=== PATIENT | male | born 1970 | race Hispanic/Latino ===

== ENCOUNTER 2021-05-05 12:24 | Emergency (ER) | payer OTHER ==
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
--- NOTE | 2021-05-05 14:11 | RAD REPORT ---
EXAM DESCRIPTION: RAD - Humerus Right - 05/05/2021 1:57 pm CLINICAL HISTORY: PAIN Trauma, pain COMPARISON: <Comparisons> FINDINGS: Right humerus, elbow and forearm- multiple projections are submitted No acute fracture or dislocation seen. Small olecranon spur.
[2021-05-05] MEDS ORDERED: cloNIDine HCL 0.1 MG TAB ONE (15:04)
--- NOTE | 2021-05-05 15:08 | RAD REPORT ---
EXAM DESCRIPTION: RAD - Chest Pa And Lat (2 Views) - 05/05/2021 2:59 pm CLINICAL HISTORY: CHEST PAIN Chest pain. COMPARISON: CHEST SINGLE VIEW dated 06/30/2015 FINDINGS: The lungs are clear. The heart is normal in size. Tortuous thoracic aorta. No displaced fr actures.
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
[2021-05-05 15:53] VITALS: TEMP 98.1
[2021-05-05 15:56] VITALS: BP 188/139; O2SAT 96
[2021-05-05] MEDS ORDERED: KETOROLAC 30 MG/ML INJ ONE (15:56)
[2021-05-05] MEDS ORDERED: HYDROCODONE/APAP 10/325 TAB ONE (15:56)
--- NOTE | 2021-05-06 14:11 | RAD REPORT ---
EXAM DESCRIPTION: RAD - Elbow Right 3 View - 05/05/2021 1:57 pm CLINICAL HISTORY: PAIN Trauma, pain COMPARISON: <COMPARISONS> FINDINGS: Right humerus, elbow and forearm- multiple projections are submitted No acute fracture or dislocation seen. Small olecranon spur.
--- NOTE | 2021-05-06 14:12 | RAD REPORT ---
EXAM DESCRIPTION: RAD - Forearm Right - 05/05/2021 1:51 pm CLINICAL HISTORY: PAIN Trauma, pain COMPARISON: <COMPARISONS> FINDINGS: Right humerus, elbow and forearm- multiple projections are submitted No acute fracture or dislocation seen. Small olecranon spur.
--- NOTE | 2021-05-07 07:30 | EKG ---
Test Date: 2021-05-05 Test Time: 14:40:03 Video Player Mechanic: KARLI MEASUREMENT RESULTS: Intervals: Rate: 81 [place]: 142 QRSD: 82 QT: 372 QTc: 432 Circle: P: 25 [place]: 142 QRS: 16 T: 147 INTERPRETIVE STATEMENTS: Normal sinus rhythm Minimal voltage criteria for LVH, may be normal variant T wave abnormality, consider lateral ischemia Abnormal ECG Compared to ECG 07/01/2015 11:55:40 Left ventricular hypertrophy now present Possible ischemia now present T-wave abnormality still present Electronically Signed On 05-07-21 07:26:51 CDT by Nirav Smith
== END 2021-05-05 15:47 | disposition home or self-care (01) ==
LOC: ER 12:24
DX: M25.511 Pain in right shoulder (principal); M54.5 Low back pain; V28.4XXA Motorcycle driver injured in noncollision transport accident in traffic accident, initial encounter; I10 Essential (primary) hypertension; F17.210 Nicotine dependence, cigarettes, uncomplicated
CPT/HCPCS: 71046; 72100; 93005; 96372; 99283

== ENCOUNTER 2021-07-02 12:34 | Emergency (ER) | payer OTHER ==
[2021-07-02] MEDS ORDERED: NITROGLYCERIN 0.4 MG/TAB SL ONE (14:14)
[2021-07-02] MEDS ORDERED: ASPIRIN 81 MG CHEWABLE TABLET ONE (14:16)
--- NOTE | 2021-07-02 14:20 | RAD REPORT ---
EXAM DESCRIPTION: RAD - Chest Single View - 07/02/2021 1:47 pm CLINICAL HISTORY: CHEST PAIN COMPARISON: Chest Pa And Lat (2 Views) dated 05/05/2021; CHEST SINGLE VIEW dated 06/30/2015 FINDINGS: No evidence of edema or pneumonia. The heart size is within normal limits.No acute osseous abnormality. No significant pleural effusions or pneumothorax. IMPRESSION: No acute cardiopulmonary disease.
[2021-07-02 14:26] LABS: Basophils % 0.9 % (0-1.3); Lymphocytes % 19.9 % (15.3-44.8); MPV 6.8 fL (7.6-11.3); RBC Red Blood Cell Count 4.73 M/uL (4.33-5.43)
[2021-07-02 14:27] LABS: Protime INR 0.96
[2021-07-02 14:43] LABS: ALT/SGPT 101 U/L (12-78); AST/SGOT 56 U/L (15-37); Albumin 3.8 g/dL (3.4-5.0); Alkaline Phosphatase 81 U/L (45-117); BUN Blood Urea Nitrogen 11 mg/dL (7-18); Bicarbonate 29 mmol/L (21-32); Bilirubin Direct 0.2 mg/dL (0-0.2); Bilirubin Total 0.8 mg/dL (0.2-1.0); Glucose Level 112 mg/dL (74-106); Magnesium 2.1 mg/dL (1.8-2.4); NT PRO-BNP 133 pg/mL (<125); Protein, Total 7.1 g/dL (6.4-8.2); Sodium Level 138 mmol/L (136-145); Troponin (Emerg Dept Use Only) < 0.02 ng/mL (0.0-0.045)
[2021-07-02] MEDS ORDERED: POTASSIUM CL SA 10 MEQ TAB PO ONE (15:31)
--- NOTE | 2021-07-02 20:01 | ER ---
Nurse's Notes [facility] Name: Kirit Brownlee Age: 50 yrs Sex: Male : 1970 Arrival Date: 07/02/2021 Time: 12:35 Bed 14 [facility] MD: Diagnosis: Essential (primary) hypertension;Chest pain, unspecified Presentation: 07/02 12:40 Chief complaint: Patient states: CP for 2 days. High BP for 2 days. BP was 215/149 at ss home last night. Coronavirus screen: Client denies travel out of the [place] in the last 14 days. At this time, the client does not indicate any symptoms associated with coronavirus-19. Ebola Screen: Patient denies travel to an Ebola-affected area in the 21 days before illness onset. Initial Sepsis Screen: Does the patient meet any 2 criteria? No. Patient's initial sepsis screen is negative. Does the patient have a suspected source of infection? No. Patient's initial sepsis screen is negative. Risk Assessment: Do you want to hurt yourself or someone else? Patient reports no desire to harm self or others. Onset of symptoms was July 01, 2021. 12:40 Method Of Arrival: Ambulatory ss 12:40 Acuity: JESSICA 3 ss Historical: - Allergies: 12:42 No Known Drug Allergies; ss - PMHx: 12:42 Hypertension; GERD; high cholesterol; ss - PSHx: 12:42 None; ss - Immunization history:: Client reports receiving the 1st dose of the Covid vaccine, Flu vaccine is up to date. - Social history:: Smoking status: Patient reports the use of cigarette tobacco products, denies chronic smoking, but will smoke occasionally. Screenin:34 Abuse screen: Denies threats or abuse. Nutritional screening: No deficits noted. vg1 Tuberculosis screening: No symptoms or risk factors identified. Fall Risk No fall in past 12 months (0 pts). No secondary diagnosis (0 pts). IV access (20 points). Ambulatory Aid- None/Bed Rest/Nurse Assist (0 pts). Gait- Normal/Bed Rest/Wheelchair (0 pts) Mental Status- Oriented to own ability (0 pts). Total Lopez Fall Scale indicates No Risk (0-24 pts). Assessment: 13:00 General: Appears in no apparent distress. uncomfortable, Behavior is calm, cooperative. vg1 Pain: Complains of pain in back and chest Pain does not radiate. Pain currently is 7 out of 10 on a pain scale. Quality of pain is described as pressure, Pain began 1 day ago. Neuro: Level of Consciousness is awake, alert, obeys commands, Oriented to person, place, time, situation, Die Turner are equal bilaterally Moves all extremities. Gait is Speech is normal, Facial symmetry appears normal, Reports dizziness, since yesterday and lightheaded. Also stated that yesterday Right side of jaw was twitching. . Cardiovascular: Patient's skin is warm and dry. Rhythm is sinus rhythm. Respiratory: Airway is patent Respiratory effort is even, unlabored. GI: Patient currently denies diarrhea, nausea, vomiting. : No signs and/or symptoms were reported regarding the genitourinary system. EENT: No signs and/or symptoms were reported regarding the EENT system. Derm: Skin is intact, is healthy with good turgor. Musculoskeletal: Circulation, motion, and sensation intact. 14:09 Reassessment: about five minutes after receiving Nirto, pt became pale and nauseous. BP vg1 dropped to 99/53 HR 72. Provider notified. At 1402 BP 104/84 HR 53. At 1404 BP 121/87 HR 50. Provider at bedside. 15:14 Reassessment: Patient appears in no apparent distress at this time. Patient and/or vg1 family updated on plan of care and expected duration. Pain level reassessed. Patient is alert, oriented x 3, equal unlabored respirations, skin warm/dry/pink. Rated chest pain 2/10. Provider notified Patient states feeling better. 16:49 Reassessment: Patient appears in no apparent distress at this time. Patient and/or vg1 family updated on plan of care and expected duration. Pain level reassessed. Patient is alert, oriented x 3, equal unlabored respirations, skin warm/dry/pink. Patient denies pain at this time. 17:58 Reassessment: Patient appears in no apparent distress at this time. Patient and/or vg1 family updated on plan of care and expected duration. Pain level reassessed. Patient is alert, oriented x 3, equal unlabored respirations, skin warm/dry/pink. Patient denies pain at this time. Patient states feeling better. 19:31 Reassessment: Patient appears in no apparent distress at this time. No changes from vg1 previously documented assessment. 20:26 Reassessment: Patient appears in no apparent distress at this time. No changes from vg1 previously documented assessment. Patient denies pain at this time. Patient states feeling better. Vital Signs: 12:40 Pulse 75; Resp 18; Temp 97.6; Pulse Ox 100% ; Weight 90.72 kg; Height 5 ft. 6 in. ss (167.64 cm); Pain 7/10; 12:43 BP 192 / 126; ss 12:58 BP 174 / 121; Pulse 71; Resp 14; Pulse Ox 97% ; vg1 13:00 BP 163 / 117; Pulse 68; Resp 12; Pulse Ox 97% ; vg1 13:30 BP 185 / 121; Pulse 68; Resp 14; Pulse Ox 100% ; vg1 14:00 BP 99 / 53; Pulse 72; Resp 20; Pulse Ox 98% ; vg1 14:02 BP 104 / 84; Pulse 53; Resp 16; Pulse Ox 95% ; vg1 14:04 BP 121 / 87; Pulse 50; Resp 18; Pulse Ox 100% ; vg1 14:15 BP 120 / 93; Pulse 67; Resp 12; Pulse Ox 96% ; vg1 14:30 BP 134 / 110; Pulse 63; Resp 12; Pulse Ox 98% ; vg1 14:45 BP 141 / 104; Pulse 62; Resp 12; Pulse Ox 98% ; vg1 15:00 BP 130 / 104; Pulse 65; Resp 12; Pulse Ox 96% ; vg1 15:30 BP 153 / 113; Pulse 65; Resp 14; Pulse Ox 99% ; vg1 16:00 BP 141 / 113; Pulse 61; Resp 12; Pulse Ox 97% ; vg1 16:30 BP 146 / 112; Pulse 62; Resp 16; Pulse Ox 98% ; vg1 17:30 BP 142 / 115; Pulse 66; Resp 18; Pulse Ox 100% ; vg1 18:00 BP 161 / 113; Pulse 65; Resp 12; Pulse Ox 98% ; vg1 18:30 BP 165 / 102; Pulse 67; Resp 12; Pulse Ox 98% ; vg1 19:00 BP 158 / 107; Pulse 64; Resp 12; Pulse Ox 99% ; vg1 20:26 BP 162 / 114; Pulse 70; Resp 14; Pulse Ox 99% ; vg1 12:40 Body Mass Index 32.28 (90.72 kg, 167.64 cm) ED Course: 12:35 Patient arrived in ED. ds1 12:40 Arm band placed on. ss 12:42 Triage completed. ss 12:58 Mis Marquez RN is Primary Nurse. vg1 13:32 Remigio Bolaños PA is PHCP. jr8 13:32 Edvin Prieto MD is Attending Physician. jr8 13:34 Patient has correct armband on for positive identification. Placed in gown. Bed in low vg1 position. Call light in reach. Side rails up X2. Adult w/ patient. 13:47 XRAY Chest (1 view) In Process Unspecified. EDMS 14:03 Initial lab(s) drawn, by me, sent to lab. Inserted saline lock: 20 gauge in right vg1 antecubital area, using aseptic technique. Blood collected. 17:59 Repeat lab(s) drawn. by me, sent to lab. vg1 19:11 Primary Nurse role handed off by Mis Marquez RN 19:17 Mis Marquez RN is Primary Nurse. vg1 20:00 Nirav Smith MD is Referral Physician. jr8 20:27 No provider procedures requiring assistance completed. IV discontinued, intact, vg1 bleeding controlled, No redness/swelling at site. Pressure dressing applied. Administered Medications: 13:58 Drug: Aspirin Chewable Tablet 324 mg Route: PO; vg1 15:00 Follow up: Response: No adverse reaction vg1 13:58 Drug: Nitroglycerin 0.4 mg Route: Sublingual; vg1 15:00 Follow up: Response: Adverse reaction, Physician notified vg1 15:14 Drug: Potassium Chloride 40 mEq Route: PO; vg1 20:27 Follow up: Response: No adverse reaction vg1 Outcome: 20:01 Discharge ordered by . jr8 20:27 Discharged to home ambulatory, with family. vg1 20:27 Condition: stable 20:27 Discharge instructions given to patient, Instructed on discharge instructions, follow up and referral plans. Demonstrated understanding of instructions, follow-up care. 20:27 Patient left the ED. vg1 Signatures: Dispatcher [employer] [facility] Randi Carmichael ds1 Nataliia Padilla RN RN Remigio Bolaños PA PA jr8 Mis Marquez RN RN vg1
--- NOTE | 2021-07-02 20:01 | EDPHYS ---
Physician Documentation [facility] Name: Kirit Brownlee Age: 50 yrs Sex: Male : 1970 Arrival Date: 07/02/2021 Time: 12:35 Bed 14 Private MD: ED Physician Edvin Prieto HPI: 07/02 14:45 This 50 yrs old Male presents to ER via Ambulatory with complaints of High jr8 Blood Pressure. 14:45 Onset: The symptoms/episode began/occurred gradually, 2 day(s) ago. Associated signs jr8 and symptoms: Pertinent positives: chest pain. Severity of symptoms: At its worst the blood pressure was moderate, in the emergency department the blood pressure is unchanged. The patient has experienced a previous episode. The patient has not recently seen a physician. Patient stated that he deals with chronic hypertension. Stated for the past couple days the hypertension has been worse and now having on and off chest pain.. Historical: - Allergies: 12:42 No Known Drug Allergies; ss - PMHx: 12:42 Hypertension; GERD; high cholesterol; ss - PSHx: 12:42 None; ss - Immunization history:: Client reports receiving the 1st dose of the Covid vaccine, Flu vaccine is up to date. - Social history:: Smoking status: Patient reports the use of cigarette tobacco products, denies chronic smoking, but will smoke occasionally. ROS: 14:45 Eyes: Negative for injury, pain, redness, and discharge, ENT: Negative for injury, jr8 pain, and discharge, Neck: Negative for injury, pain, and swelling, Respiratory: Negative for shortness of breath, cough, wheezing, and pleuritic chest pain, Abdomen/GI: Negative for abdominal pain, nausea, vomiting, diarrhea, and constipation, Back: Negative for injury and pain, MS/Extremity: Negative for injury and deformity, Skin: Negative for injury, rash, and discoloration, Neuro: Negative for headache, weakness, numbness, tingling, and seizure. 14:45 Cardiovascular: Positive for chest pain, Negative for edema, orthopnea, palpitations, paroxysmal nocturnal dyspnea. Exam: 14:45 Constitutional: This is a well developed, well nourished patient who is awake, alert, jr8 and in no acute distress. Eyes: Pupils equal round and reactive to light, extra-ocular motions intact. Lids and lashes normal. Conjunctiva and sclera are non-icteric and not injected. Cornea within normal limits. Periorbital areas with no swelling, redness, or edema. ENT: Nares patent. No nasal discharge, no septal abnormalities noted. Tympanic membranes are normal and external auditory canals are clear. Oropharynx with no redness, swelling, or masses, exudates, or evidence of obstruction, uvula midline. Mucous membranes moist. Neck: Trachea midline, no thyromegaly or masses palpated, and no cervical lymphadenopathy. Supple, full range of motion without nuchal rigidity, or vertebral point tenderness. No Meningismus. Cardiovascular: Regular rate and rhythm with a normal S1 and S2. No gallops, murmurs, or rubs. Normal PMI, no JVD. No pulse deficits. Respiratory: Lungs have equal breath sounds bilaterally, clear to auscultation and percussion. No rales, rhonchi or wheezes noted. No increased work of breathing, no retractions or nasal flaring. Abdomen/GI: Soft, non-tender, with normal bowel sounds. No distension or tympany. No guarding or rebound. No evidence of tenderness throughout. Back: No spinal tenderness. No costovertebral tenderness. Full range of motion. Skin: Warm, dry with normal turgor. Normal color with no rashes, no lesions, and no evidence of cellulitis. MS/ Extremity: Pulses equal, no cyanosis. Neurovascular intact. Full, normal range of motion. Neuro: Awake and alert, GCS 15, oriented to person, place, time, and situation. Cranial nerves II-XII grossly intact. Motor strength 5/5 in all extremities. Sensory grossly intact. Vital Signs: 12:40 Pulse 75; Resp 18; Temp 97.6; Pulse Ox 100% ; Weight 90.72 kg; Height 5 ft. 6 in. ss (167.64 cm); Pain 7/10; 12:43 BP 192 / 126; ss 12:58 BP 174 / 121; Pulse 71; Resp 14; Pulse Ox 97% ; vg1 13:00 BP 163 / 117; Pulse 68; Resp 12; Pulse Ox 97% ; vg1 13:30 BP 185 / 121; Pulse 68; Resp 14; Pulse Ox 100% ; vg1 14:00 BP 99 / 53; Pulse 72; Resp 20; Pulse Ox 98% ; vg1 14:02 BP 104 / 84; Pulse 53; Resp 16; Pulse Ox 95% ; vg1 14:04 BP 121 / 87; Pulse 50; Resp 18; Pulse Ox 100% ; vg1 14:15 BP 120 / 93; Pulse 67; Resp 12; Pulse Ox 96% ; vg1 14:30 BP 134 / 110; Pulse 63; Resp 12; Pulse Ox 98% ; vg1 14:45 BP 141 / 104; Pulse 62; Resp 12; Pulse Ox 98% ; vg1 15:00 BP 130 / 104; Pulse 65; Resp 12; Pulse Ox 96% ; vg1 15:30 BP 153 / 113; Pulse 65; Resp 14; Pulse Ox 99% ; vg1 16:00 BP 141 / 113; Pulse 61; Resp 12; Pulse Ox 97% ; vg1 16:30 BP 146 / 112; Pulse 62; Resp 16; Pulse Ox 98% ; vg1 17:30 BP 142 / 115; Pulse 66; Resp 18; Pulse Ox 100% ; vg1 18:00 BP 161 / 113; Pulse 65; Resp 12; Pulse Ox 98% ; vg1 18:30 BP 165 / 102; Pulse 67; Resp 12; Pulse Ox 98% ; vg1 19:00 BP 158 / 107; Pulse 64; Resp 12; Pulse Ox 99% ; vg1 20:26 BP 162 / 114; Pulse 70; Resp 14; Pulse Ox 99% ; vg1 12:40 Body Mass Index 32.28 (90.72 kg, 167.64 cm) ss MDM: 13:32 Patient medically screened. [facility] 19:51 Data reviewed: vital signs, nurses notes, lab test result(s), EKG, radiologic studies, jr8 plain films. Data interpreted: Pulse oximetry: on room air is 99 %. Interpretation: normal. 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 Response to treatment: the patient's symptoms have markedly improved after treatment. ED course: Currently without chest pain. Both troponins were negative. Blood pressure markedly improved. Will have patient follow-up with primary care physician and cardiology. Also noted to patient that his potassium was slightly low. That this could be secondary causes of hypertension and that he needs to be worked up for primary hyperaldosteronism. Patient good with this and will follow up. Knows to come back if worse.. 07/02 13:32 Order name: Basic Metabolic Panel; Complete Time: 14:45 07/02 13:32 Order name: CBC with Diff; Complete Time: 15:15 07/02 13:32 Order name: LFT's; Complete Time: 14:45 07/02 13:32 Order name: Magnesium; Complete Time: 14:45 07/02 13:32 Order name: NT PRO-BNP; Complete Time: 14:45 07/02 13:32 Order name: PT-INR; Complete Time: 14:53 07/02 12:45 Order name: EKG; Complete Time: 12:45 ss 07/02 12:45 Order name: EKG - Nurse/Tech; Complete Time: 12:45 ss 07/02 13:32 Order name: Troponin (emerg Dept Use Only); Complete Time: 14:45 07/02 13:32 Order name: XRAY Chest (1 view); Complete Time: 14:25 07/02 17:47 Order name: Troponin (emerg Dept Use Only); Complete Time: 18:48 07/02 13:32 Order name: Cardiac monitoring; Complete Time: 14:09 07/02 13:32 Order name: IV Saline Lock; Complete Time: 14:09 07/02 13:32 Order name: Labs collected and sent; Complete Time: 14:09 07/02 13:32 Order name: O2 Per Protocol; Complete Time: 13:54 07/02 13:32 Order name: O2 Sat Monitoring; Complete Time: 13:54 Administered Medications: 13:58 Drug: Aspirin Chewable Tablet 324 mg Route: PO; vg1 15:00 Follow up: Response: No adverse reaction vg1 13:58 Drug: Nitroglycerin 0.4 mg Route: Sublingual; vg1 15:00 Follow up: Response: Adverse reaction, Physician notified vg1 15:14 Drug: Potassium Chloride 40 mEq Route: PO; vg1 20:27 Follow up: Response: No adverse reaction vg1 Disposition: 07/03 07:30 Co-signature as Attending Physician, Edvin Prieto MD I agree with the assessment and jesusita plan of care. Disposition Summary: 07/02/21 20:01 Discharge Ordered Location: Home jr8 Problem: new jr8 Symptoms: have improved jr8 Condition: Stable jr8 Diagnosis - Essential (primary) hypertension jr8 - Chest pain, unspecified jr8 Followup: jr8 - With: Private Physician - When: 2 - 3 days - Reason: Recheck today's complaints, Continuance of care, Re-evaluation by your physician Followup: jr8 - With: Nirav Smith MD - When: 2 - 3 days - Reason: Recheck today's complaints, Continuance of care, Re-evaluation by your physician Discharge Instructions: - Discharge Summary Sheet jr8 - Nonspecific Chest Pain, Adult jr8 - Hypertension, Adult jr8 Forms: - Medication Reconciliation Form jr8 - Thank You Letter jr8 - Antibiotic Education jr8 - Prescription Opioid Use jr8 - Work release form vg1 Signatures: Dispatcher [employer] EDEdvin Phillips MD MD cha Smirch, Shelby, RN RN Remigio Argueta PA PA jr8 Mis Marquez, RN RN vg1
[2021-07-02 21:34] VITALS: TEMP 97.6
[2021-07-02 22:34] VITALS: O2SAT 99
[2021-07-02 22:36] VITALS: BP 162/114
== END 2021-07-02 20:27 | disposition home or self-care (01) ==
LOC: ER 12:34
DX: I10 Essential (primary) hypertension (principal); F17.210 Nicotine dependence, cigarettes, uncomplicated
CPT/HCPCS: 36415; 71045; 80048; 80076; 83735; 83880; 84484; 85025; 85610; 93005; 99284

== ENCOUNTER 2025-04-19 17:12 | Emergency (ER) | payer OTHER ==
[2025-04-19 18:00] LABS: Absolute Eosinophils 0.1 K/uL (0-0.5); Absolute Lymphocytes (CBC) 1.4 K/uL (0.7-4.9); Absolute Monocytes 0.5 K/uL (0.1-1.3); Absolute Neutrophil 4.5 K/uL (1.8-8.0); Basophils % 0.5 % (0-1.3); Eosinophils % 1.4 % (0-4.4); Hematocrit 42.1 % (39.6-49.0); Hemoglobin 15.1 g/dL (13.6-17.9); MCH 31.8 pg (27.0-35.0); MCHC 35.9 g/dL (32.0-36.0); MCV 88.6 fL (80-100); MPV 6.8 fL (7.6-11.3); Monocytes % 7.5 % (3.3-12.3); Neutrophils % 68.6 % (41.7-73.7); Platelets 230 thou/uL (152-406); RBC Red Blood Cell Count 4.76 M/uL (4.33-5.43); Red Cell Distribution Width 13.6 % (12.1-15.2)
[2025-04-19] MEDS ORDERED: NA CHLORIDE 0.9% 1,000 ML ONE (18:13)
[2025-04-19] MEDS ORDERED: MORPHINE 4 MG/ML SYR ONE (18:13)
[2025-04-19] MEDS ORDERED: ONDANSETRON 4 MG/2 ML VIAL ONE (18:13)
[2025-04-19 18:37] LABS: Albumin/Globulin Ratio 1.2 (1.1-1.8); Anion Gap 7.9 mEq/L (5.0-15.0); Bilirubin Total 1.2 mg/dL (0.2-1.0); Globulin 3.4 g/dL (2.3-3.5); Potassium 2.9 mEq/L (3.5-5.1); Protein, Total 7.4 g/dL (6.4-8.2)
--- NOTE | 2025-04-19 19:08 | RAD REPORT ---
EXAMINATION: CT ABDOMEN AND PELVIS WITH CONTRAST CLINICAL INDICATION: Abd pain;Flank pain TECHNIQUE: CT abdomen and pelvis was performed, after the administration of IV contrast, as per [facility] protocol. Axial, sagittal and coronal reconstructions were obtained. One or more of the following dose reduction techniques were used: Automated exposure control, adjustment of the mA and k V according to patient size, and iterative reconstruction. Unless otherwise specified, incidental findings do not require dedicated imaging follow-up. COMPARISON: No prior exam. FINDINGS: LOWER CHEST: The visualized lung bases are clear. LIVER: Fatty liver noted. There is 3.8 cm slightly rim-enhancing lesion in the right lobe of the live r. Grossly unremarkable gallbladder. SPLEEN: Normal size. No focal lesion. PANCREAS: No mass, ductal dilation, or martín-pancreatic fluid. ADRENALS: Normal; no mass. KIDNEYS: Normal size and contour. No hydronephrosis. GASTROINTESTINAL TRACT: No evidence of free air, significant intra-abdominal free fluid, bowel obstru ction or abscess. There is mild diverticulosis coli of the sigmoid colon without diverticulitis. APPENDIX: Normal appendix. LYMPH NODES: No lymphadenopathy. MUSCULOSKELETAL: No acute or suspicious osseous abnormality. ADDITIONAL FINDINGS: Small fat-containing umbilical hernia. IMPRESSION: Mild diffuse fatty liver. 3.8 cm slightly rim-enhancing lesion in the right lobe of the liver may be benign however is indeterminant. Recommend nonemergent MRI liver protocol follow-up for further evaluation. Mild diverticulosis coli of the sigmoid colon without diverticulitis.
[2025-04-19] MEDS ORDERED: POTASSIUM 25 MEQ EFFERV TAB ONE (19:49)
[2025-04-19 20:05] LABS: Specific Gravity > 1.030 (1.005-1.030); Sqamous Epithelial <5 /HPF (None Seen); Transitional Epithelial <5 /HPF (None Seen); Urine Bacteria <20 /HPF (<20); Urine Bilirubin NEGATIVE (Negative); Urine Blood Negative (Negative); Urine Clarity Clear (Clear); Urine Color Light-Yellow (Yellow); Urine Culture Reflex Order NOT NEEDED; Urine Glucose NEGATIVE (Negative); Urine Ketones NEGATIVE (Negative); Urine Microscopic Reflex YN ORDER UMIC; Urine Mucus Slight /HPF (None Seen); Urine Nitrite NEGATIVE (Negative); Urine Protein NEGATIVE (Negative); Urine RBC <5 /HPF (None Seen); Urine Urobilinogen Normal (Normal); Urine WBC <5 /HPF (<5)
--- NOTE | 2025-04-19 20:26 | ER ---
Nurse's Notes [facility] Name: Kirit Brownlee Age: 54 yrs Sex: Male : 1970 Arrival Date: 04/19/2025 Time: 17:12 Bed 4 Private MD: Diagnosis: Strain of muscle, fascia and tendon of lower back Presentation: 04/19 17:27 Chief complaint: Patient states: Severe L flank pain since 11 AM with nausea. ll1 Coronavirus screen: Client denies travel out of the [place] in the last 14 days. At this time, the client does not indicate any symptoms associated with coronavirus-19. Ebola Screen: Patient denies travel to an Ebola-affected area in the 21 days before illness onset. Initial Sepsis Screen: Does the patient meet any 2 criteria? No. Patient's initial sepsis screen is negative. Does the patient have a suspected source of infection? No. Patient's initial sepsis screen is negative. Risk Assessment: Do you want to hurt yourself or someone else? Patient reports no desire to harm self or others. Onset of symptoms was April 19, 2025. 17:27 Method Of Arrival: Ambulatory ll1 17:27 Acuity: JESSICA 2 ll1 Historical: - Allergies: 17:27 No Known Drug Allergies; ll1 - PMHx: 17:27 High Cholesterol; Hypertension; GERD; ll1 - PSHx: 17:27 None; ll1 - Immunization history:: Adult Immunizations up to date. - Infectious Disease History:: Denies. - Social history:: Smoking status: Patient reports the use of cigarette tobacco products, denies chronic smoking, but will smoke occasionally. Screenin:25 [facility] ED Fall Risk Assessment (Adult) History of falling in the last 3 months, ph including since admission No falls in past 3 months (0 pts) Confusion or Disorientation No (0 pts) Intoxicated or Sedated No (0 pts) Impaired Gait No (0 pts) Mobility Assist Device Used No (0 pt) Altered Elimination No (0 pt) Score/Fall Risk Level 0 - 2 = Low Risk Oriented to surroundings, Maintained a safe environment, Hourly rounding (assess needs \T\ fall precautionary measures) done. Abuse screen: Denies threats or abuse. Denies injuries from another. Nutritional screening: No deficits noted. Tuberculosis screening: No symptoms or risk factors identified. Assessment: 18:24 General: Appears in no apparent distress. comfortable, Behavior is calm, cooperative, ph appropriate for age. Pain: Complains of pain in anterior aspect of left lateral abdomen, posterior aspect of left lateral abdomen and left upper quadrant Pain radiates to back. Neuro: Level of Consciousness is awake, alert, obeys commands, Oriented to person, place, time, situation. Cardiovascular: Capillary refill < 3 seconds in bilateral fingers Patient's skin is warm and dry. Respiratory: Airway is patent Respiratory effort is even, unlabored. GI: Reports upper abdominal pain, nausea. : Reports pain in left flank(s), upper quadrant(s) in lower back. Derm: Skin is pink, warm \T\ dry. 20:05 Reassessment: Patient appears in no apparent distress at this time. Patient and/or bm8 family updated on plan of care and expected duration. Pain level reassessed. Patient is alert, oriented x 3, equal unlabored respirations, skin warm/dry/pink. Patient states feeling better. Patient states symptoms have improved. GI: Abdomen is round non-distended, obese, Reports upper abdominal pain, pt states that he feels like he was kicked and the pain radiates to back. 21:04 Reassessment: Patient appears in no apparent distress at this time. Patient and/or bm8 family updated on plan of care and expected duration. Pain level reassessed. Patient is alert, oriented x 3, equal unlabored respirations, skin warm/dry/pink. Patient states feeling better. Patient states symptoms have improved. Vital Signs: 17:27 BP 217 / 136; Pulse 85; Resp 18; Temp 97.6; Pulse Ox 99% ; Weight 88.45 kg; Height 5 ll1 ft. 5 in. ; Pain 8/10; 18:26 BP 197 / 113; Pulse 66; Resp 18; Pulse Ox 98% on R/A; ph 20:05 BP 174 / 116; Pulse 70; Resp 17; Temp 97.6; Pulse Ox 99% ; Pain 6/10; bm8 21:04 BP 157 / 84; Pulse 87; Resp 18; Temp 97.6; Pulse Ox 100% ; Pain 2/10; bm8 17:27 Body Mass Index 32.45 (88.45 kg, 165.1 cm) ll1 17:27 Pain Scale: Adult ll1 20:05 Pain Scale: Adult bm8 21:04 Pain Scale: Adult bm8 Morrow Coma Score: 20:05 Eye Response: spontaneous(4). Motor Response: obeys commands(6). Verbal Response: bm8 oriented(5). Total: 15. 21:04 Eye Response: spontaneous(4). Motor Response: obeys commands(6). Verbal Response: bm8 oriented(5). Total: 15. ED Course: 17:16 Patient arrived in ED. al6 17:27 Arm band placed on. ll1 17:29 Triage completed. ll1 17:31 [facility] sb4 17:31 Edvin Prieto MD is Attending Physician. sb4 17:41 Dara Estrada RN is Primary Nurse. ph 17:52 Inserted saline lock: 22 gauge in left antecubital area, using aseptic technique. Blood nh2 collected. Flushed with 10 mL NS. 17:52 CBC with Diff Sent. nh2 17:52 CMP Sent. nh2 17:52 Lipase Sent. nh2 18:06 CMP Sent. nh2 18:06 Lipase Sent. nh2 18:26 Patient has correct armband on for positive identification. Bed in low position. Call ph light in reach. Side rails up X 1. Pulse ox on. NIBP on. Door closed. Noise minimized. 18:26 No provider procedures requiring assistance completed. ph 18:58 CT Abd/Pelvis - IV Contrast Only In Process Unspecified. EDMS 21:04 Provided Education on: post er care. bm8 21:04 IV discontinued, intact, bleeding controlled, No redness/swelling at site. Pressure bm8 dressing applied. Administered Medications: 18:22 Drug: Ondansetron IVP 4 mg IVP once; over 2 minutes Route: IVP; Site: left antecubital; ph 20:05 Follow up: Response: No adverse reaction bm8 18:22 Drug: morphine IVP or IV 4 mg IVP once over 4 mins Route: IVP; Infused Over: 4 mins; ph Site: left antecubital; 20:05 Follow up: Response: No adverse reaction bm8 18:22 Drug: NS 0.9% IV 1000 ml IV at 1 bolus Per protocol; to be given as a bolus over 60 ph minutes Route: IV; Rate: 1 bolus; Site: left antecubital; 20:04 Follow up: Response: No adverse reaction; IV Status: Completed infusion bm8 20:03 Drug: Potassium PO Effervescent Tablet 50 mEq PO once; dissolve in 4 ounces of water or bm8 juice Route: PO; 21:06 Follow up: Response: No adverse reaction bm8 21:04 Drug: Ketorolac IVP 30 mg IVP once Route: IVP; Site: left antecubital; bm8 21:06 Follow up: Response: No adverse reaction bm8 21:04 Drug: Cyclobenzaprine PO 10 mg PO once Route: PO; bm8 21:06 Follow up: Response: No adverse reaction bm8 Medication: 18:25 VIS not applicable for this client. ph Outcome: 20:26 Discharge ordered by . sb4 21: Discharged to home ambulatory, with family, bm8 21:04 Condition: improved 21:04 Discharge instructions given to patient, family, Instructed on discharge instructions, follow up and referral plans. no drinking with medication, no driving heavy equipment, medication usage, Demonstrated understanding of instructions, follow-up care, medications, Prescriptions given X 2, 21:07 Patient left the ED. bm8 Signatures: Dispatcher [employer] EDMS Dara Estrada RN RN ph Lewis, Lynsay RN RN ll1 Chloe Ramirez PA-C PAClarisa sb4 Blair Longoria RN RN bm8 Ezio Meadows, Bety Garcia6 Corrections: (The following items were deleted from the chart) 17:30 17:27 Pulse 85bpm; Resp 18bpm; Pulse Ox 99%; Temp 97.6F; 88.45 kg; Height 5 ft. 5 in.; ll1 BMI: 32.4; Pain 8/10, Adult; ll1 17:30 17:27 Acuity: JESSICA 3 ll1 ll1
--- NOTE | 2025-04-19 20:27 | EDPHYS ---
Physician Documentation [facility] Name: Kirit Brownlee Age: 54 yrs Sex: Male : 1970 Arrival Date: 04/19/2025 Time: 17:12 Bed 4 Private MD: ED Physician Edvin Prieto HPI: 04/19 18:01 This 54 yrs old Male presents to ER via Ambulatory with complaints of flank sb4 pain, abdominal pain. 18:01 Patient reports intermittent left flank pain x 1 year, got significantly worse today, sb4 radiates around to the left lower quadrant. Denies any trauma. Denies any difficulty urinating. Denies any hematuria. Does endorse nausea and vomiting secondary to the pain. Denies any history of kidney stones. States his blood pressure runs high at baseline despite medication. Historical: - Allergies: 17:27 No Known Drug Allergies; ll1 - PMHx: 17:27 High Cholesterol; Hypertension; GERD; ll1 - PSHx: 17:27 None; ll1 - Immunization history:: Adult Immunizations up to date. - Infectious Disease History:: Denies. - Social history:: Smoking status: Patient reports the use of cigarette tobacco products, denies chronic smoking, but will smoke occasionally. ROS: 18:01 Constitutional: Negative for fever, chills, and weight loss, sb4 18:01 Abdomen/GI: Positive for abdominal pain, 18:01 Back: Positive for flank pain, on the left, 18:01 All other systems are negative, Exam: 18:01 Head/Face: Normocephalic, atraumatic. Eyes: Extra-ocular motions intact. Periorbital sb4 areas with no swelling, redness, or edema. ENT: Mucous membranes moist. Cardiovascular: Regular rate and rhythm with a normal S1 and S2. Respiratory: No increased work of breathing, no retractions or nasal flaring. Abdomen/GI: Soft, non-tender, no distension. 18:01 Constitutional: The patient appears alert, awake, uncomfortable, 18:03 Back: CVA tenderness, that is moderate, is noted on the left, sb4 Vital Signs: 17:27 BP 217 / 136; Pulse 85; Resp 18; Temp 97.6; Pulse Ox 99% ; Weight 88.45 kg; Height 5 ll1 ft. 5 in. ; Pain 8/10; 18:26 BP 197 / 113; Pulse 66; Resp 18; Pulse Ox 98% on R/A; ph 20:05 BP 174 / 116; Pulse 70; Resp 17; Temp 97.6; Pulse Ox 99% ; Pain 6/10; bm8 21:04 BP 157 / 84; Pulse 87; Resp 18; Temp 97.6; Pulse Ox 100% ; Pain 2/10; bm8 17:27 Body Mass Index 32.45 (88.45 kg, 165.1 cm) ll1 17:27 Pain Scale: Adult ll1 20:05 Pain Scale: Adult bm8 21:04 Pain Scale: Adult bm8 [place] Coma Score: 20:05 Eye Response: spontaneous(4). Motor Response: obeys commands(6). Verbal Response: bm8 oriented(5). Total: 15. 21:04 Eye Response: spontaneous(4). Motor Response: obeys commands(6). Verbal Response: bm8 oriented(5). Total: 15. MDM: 17:31 Medical Screening Exam initiated sb4 18:03 Differential diagnosis: nephrolithiasis, ureterolithiasis, UTI, pyelonephritis, colitis.sb4 23:36 Data reviewed: vital signs, nurses notes, lab test result(s), radiologic studies, and sb4 as a result, I will discharge patient. Historians other than the Patient: Spouse/Significant Other: . Care significantly affected by the following chronic conditions: Hypertension. Counseling: I had a detailed discussion with the patient and/or guardian regarding the historical points, exam findings, and any diagnostic results supporting the discharge/admit diagnosis, the presence of at least one elevated blood pressure reading (>120/80) during this emergency department visit, lab results, radiology results, the need for outpatient follow up, for definitive care, to return to the emergency department if symptoms worsen or persist or if there are any questions or concerns that arise at home. Special discussion: I discussed with the patient the need to follow-up with the PCP/specialist for the noted incidental finding on X-ray/CT scanning. 23:37 ED course: Patient later realized that he did strain himself yesterday while at work. sb4 His lower back yesterday while at work. His examination is most consistent with musculoskeletal pain as it improves with certain movements. His blood work and imaging are negative for any acute abdominal pathology. He is safe for discharge home at this time. I did inform patient and of growth on liver and provided them with disc and CT results, they will follow up with PCP to obtain MRI . 04/19 17:37 Order name: CBC with Diff; Complete Time: 18:03 sb4 04/19 17:37 Order name: CMP; Complete Time: 18:40 sb4 04/19 17:37 Order name: Lipase; Complete Time: 18:40 sb4 04/19 17:37 Order name: UA Rfx Feliberto Cult if indicated; Complete Time: 20:06 sb4 04/19 17:37 Order name: CT Abd/Pelvis - IV Contrast Only; Complete Time: 19:10 sb4 04/19 17:37 Order name: IV Saline Lock; Complete Time: 17:52 sb4 04/19 17:37 Order name: Labs collected and sent; Complete Time: 17:52 sb4 Administered Medications: 18:22 Drug: Ondansetron IVP 4 mg IVP once; over 2 minutes Route: IVP; Site: left antecubital; ph 20:05 Follow up: Response: No adverse reaction bm8 18:22 Drug: morphine IVP or IV 4 mg IVP once over 4 mins Route: IVP; Infused Over: 4 mins; ph Site: left antecubital; 20:05 Follow up: Response: No adverse reaction bm8 18:22 Drug: NS 0.9% IV 1000 ml IV at 1 bolus Per protocol; to be given as a bolus over 60 ph minutes Route: IV; Rate: 1 bolus; Site: left antecubital; 20:04 Follow up: Response: No adverse reaction; IV Status: Completed infusion bm8 20:03 Drug: Potassium PO Effervescent Tablet 50 mEq PO once; dissolve in 4 ounces of water or bm8 juice Route: PO; 21:06 Follow up: Response: No adverse reaction bm8 21:04 Drug: Ketorolac IVP 30 mg IVP once Route: IVP; Site: left antecubital; bm8 21:06 Follow up: Response: No adverse reaction bm8 21:04 Drug: Cyclobenzaprine PO 10 mg PO once Route: PO; bm8 21:06 Follow up: Response: No adverse reaction bm8 Disposition: 22:19 Co-signature as Attending Physician, Edvin Prieto MD I agree with the assessment and jesusita plan of care. Disposition Summary: 04/19/25 20:26 Discharge Ordered Notes: Location: Home sb4 Problem: new sb4 Symptoms: have improved sb4 Condition: Stable sb4 Diagnosis - Strain of muscle, fascia and tendon of lower back sb4 Followup: sb4 - With: Private Physician - When: As needed - Reason: Recheck today's complaints, Re-evaluation by your physician Discharge Instructions: - Discharge Summary Sheet sb4 - Acute Back Pain, Adult sb4 - Hypokalemia sb4 - Low Back Sprain or Strain Rehab sb4 Forms: - Patient Portal Instructions sb4 - Leadership Thank You Letter sb4 Prescriptions: - Diclofenac Sodium 75 mg Oral Tablet Sustained Release - take 1 tablet ORAL route 2 times per day; 30 tablet; Refills: 0, Product sb4 Selection Permitted - methocarbamol 750 mg Oral tablet - take 1 tablet ORAL route every 4 hours PRN muscle spasm/pain; 15 tablet; sb4 Refills: 0, Product Selection Permitted Signatures: Dispatcher [employer] EDEdvin Phillips MD MD cha Hall, Patricia, RN RN Marivel Capellan, RN RN ll1 Chloe Ramirez, TIFFANY PAClarisa sb4 Blair Longoria RN RN bm8 Corrections: (The following items were deleted from the chart) 17:37 17:37 Abdomen Pelvis W Con+CT.RAD.BRZ ordered. EDMS EDMS
[2025-04-19] MEDS ORDERED: KETOROLAC 30 MG/ML INJ ONE (20:58)
[2025-04-19] MEDS ORDERED: CYCLOBENZAPRINE 10 MG TAB ONE (20:59)
[2025-04-19 21:23] VITALS: TEMP 97.6
[2025-04-19 21:28] VITALS: BP 157/84; O2SAT 100
== END 2025-04-19 21:07 | disposition home or self-care (01) ==
LOC: ER 17:12
DX: S39.012A Strain of muscle, fascia and tendon of lower back, initial encounter (principal); F17.210 Nicotine dependence, cigarettes, uncomplicated
CPT/HCPCS: 96361; 85025; 81001; 36415; 83690; 80053; 74177; 96375; 96374; 99284; Q9967; J2405; J7030

== ENCOUNTER 2025-07-21 12:42 | Emergency (ER) | payer OTHER ==
[2025-07-21] MEDS ORDERED: ONDANSETRON 4 MG/2 ML VIAL ONE (12:44)
[2025-07-21] MEDS ORDERED: NA CHLORIDE 0.9% 1,000 ML ONE (12:45)
[2025-07-21] MEDS ORDERED: HYDRALAZINE HCL 20 MG/ML VIAL ONE ×2 (13:16→14:00)
[2025-07-21 13:17] LABS: Absolute Lymphocytes (CBC) 1.3 K/uL (0.7-4.9); Hematocrit 46.0 % (39.6-49.0); Hemoglobin 16.2 g/dL (13.6-17.9); MCH 31.2 pg (27.0-35.0); MCHC 35.2 g/dL (32.0-36.0); MCV 88.7 fL (80-100); MPV 7.0 fL (7.6-11.3); Nucleated RBC Absolute Count 0.0 (0-0); Nucleated Red Blood Cells % 0.0 % (0-0); RBC Red Blood Cell Count 5.19 M/uL (4.33-5.43); White Blood Count 12.30 thou/uL (4.3-10.9)
[2025-07-21] MEDS ORDERED: MORPHINE 4 MG/ML SYR ONE (13:17)
--- NOTE | 2025-07-21 13:42 | RAD REPORT ---
EXAM: Chest Single View HISTORY: 54 years Male PAIN COMPARISON: 05/02/2021 FINDINGS: LUNGS/PLEURA: The lungs are clear. No pleural effusions or pneumothorax. No pulmonary edema. CARDIAC/MEDIASTINUM: Mild cardiomegaly UPPER ABDOMEN: No significant abnormality. BONES: No acute abnormality. LINES/TUBES/OTHER: N/A IMPRESSION: No evidence of acute cardiopulmonary disease.
[2025-07-21 13:47] LABS: Anion Gap 12.0 mEq/L (5.0-15.0); BUN Blood Urea Nitrogen 7.0 mg/dL (7-18); Glucose Level 174.0 mg/dL (74-106); Lipase 29.0 U/L (13-75); Potassium 3.0 mEq/L (3.5-5.1); Troponin High Sensitivity 14.1 pg/mL (<58.9)
--- NOTE | 2025-07-21 14:40 | RAD REPORT ---
EXAMINATION: Abdomen Pelvis W Contrast CLINICAL INDICATION: Male, 54 years old.ABD PAIN TECHNIQUE: CT abdomen and pelvis was performed, after the administration of IV contrast, [facility]. Axial, sagittal and coronal reconstructions were obtained. One or more of the following dose reduction techniques were used: Automated exposure control, adjustment of the mA and/o r kV according to patient size, and/or iterative reconstruction. Unless otherwise specified, incidental findings do not require dedicated imaging follow-up. [id number]. COMPARISON: 04/19/2025 FINDINGS: LOWER CHEST: No acute process identified.No significant pericardial effusion. Mild circumferential th ickening of the distal esophagus which could reflect esophagitis. UPPER GI: No significant abnormality. LIVER: Lesion in the right hepatic lobe measuring 2.3 cm is consistent with a hemangioma. GALLBLADDER/BILE DUCTS: No biliary ductal dilatation.? PANCREAS: No mass, ductal dilation, or martín-pancreatic fluid. SPLEEN: Unremarkable. ADRENALS: No adrenal masses. KIDNEYS AND URETERS: No hydronephrosis.No suspicious renal mass.Nonobstructing renal calculi.No urete ral calculi. ABDOMINAL AORTA AND OTHER VESSELS: Mild atherosclerotic changes. PERITONEUM: No abnormal free fluid. No free air. LYMPH NODES: No pathologic lymphadenopathy. ABDOMINAL WALL: Fat containing inguinal hernias. Fat-containing umbilical hernia. SMALL BOWEL/COLON: Mild diffuse colonic wall thickening though the colon is underdistended.Normal umm endix. Mild diverticulosis without diverticulitis. Low formed stool burden. URINARY BLADDER: Underdistended but grossly unremarkable. REPRODUCTIVE ORGANS: No pathologic process. MUSCULOSKELETAL: No acute or suspicious osseous abnormality. ADDITIONAL FINDINGS: None. IMPRESSION: Mild pancolitis. No bowel obstruction. Normal appendix.
[2025-07-21] MEDS ORDERED: NITROGLYCERIN 0.4 MG/TAB SL ONE (15:22)
[2025-07-21] MEDS ORDERED: POTASSIUM 25 MEQ EFFERV TAB ONE (15:22)
--- NOTE | 2025-07-21 15:56 | EDPHYS ---
Physician Documentation [facility] Name: Kirit Brownlee Age: 54 yrs Sex: Male : 1970 Arrival Date: 07/21/2025 Time: 12:42 Bed 16 Private MD: ED Physician Shakir Felix HPI: 07/21 15:59 This 54 yrs old Male presents to ER via Ambulatory with complaints of dr5 Nausea/Vomiting, High Blood Pressure. 15:59 The patient presents to the emergency department with nausea, that is moderate, dr5 vomiting, 5 times today. Onset: The symptoms/episode began/occurred acutely. Patient is a 54-year-old male with history of GERD, hyperlipidemia, hypertension coming in for possible food poisoning from a [place] restaurant that he had last night. Patient reports he woke up this morning with severe nausea and vomiting with generalized abdominal pain. Patient denies fever, chest pain, shortness of breath. Patient reports that he also has elevated blood pressures. Patient states that he has been seen by the [facility] clinic as well as Amy Lopez on multiple occasions for blood pressure management and his blood pressure normally runs between 150 and 190 systolic. Patient reports that no doctor is able to get his blood pressure under control despite many different treatments. Patient denies headache, dizziness, visual changes.. Historical: - Allergies: 12:55 No Known Allergies; aa5 - PMHx: 12:55 GERD; High Cholesterol; Hypertension; aa5 - Immunization history:: Adult Immunizations unknown. - Infectious Disease History:: Denies. - Social history:: Smoking status: Patient reports the use of cigarette tobacco products, denies chronic smoking, but will smoke occasionally. ROS: 15:59 Constitutional: as per hpi dr5 Exam: 15:59 Constitutional: This is a well developed, well nourished patient who is awake, alert, dr5 and in no acute distress. Head/Face: Normocephalic, atraumatic. Eyes: Pupils equal round and reactive to light, extra-ocular motions intact. Lids and lashes normal. Conjunctiva and sclera are non-icteric and not injected. Cornea within normal limits. Periorbital areas with no swelling, redness, or edema. Chest/axilla: Normal chest wall appearance and motion. Nontender with no deformity. No lesions are appreciated. Cardiovascular: Regular rate and rhythm with a normal S1 and S2. Normal PMI, no JVD. No pulse deficits. Respiratory: Lungs have equal breath sounds bilaterally, clear to auscultation. No rales, rhonchi or wheezes noted. No increased work of breathing, no retractions or nasal flaring. 15:59 Back: No spinal tenderness. No costovertebral tenderness. Full range of motion. Skin: Warm, dry with normal turgor. Normal color with no rashes, no lesions, and no evidence of cellulitis. MS/ Extremity: Pulses equal, no cyanosis. Neurovascular intact. Full, normal range of motion. Neuro: Awake and alert, GCS 15, oriented to person, place, time, and situation. Cranial nerves II-XII grossly intact. Motor strength 5/5 in all extremities. Sensory grossly intact. Cerebellar exam normal. Normal gait. 15:59 Abdomen/GI: Inspection: abdomen appears normal, Bowel sounds: normal, active, Palpation: mild abdominal tenderness, in all quadrants, Vital Signs: 12:49 BP 211 / 146; Pulse 88; Resp 20 S; Temp 97.8(O); Pulse Ox 90% on R/A; Weight 90.72 kg aa5 (R); Height 5 ft. 5 in. (R); Pain 0/10; 12:58 BP 201 / 143; Pulse 88; Resp 16; Pulse Ox 93% on R/A; cm10 13:35 BP 194 / 119; Pulse 86; Resp 17; Pulse Ox 94% on R/A; cm10 13:43 BP 197 / 127; Pulse 89; Resp 16; Pulse Ox 97% on R/A; cm10 13:57 BP 197 / 124; dr5 14:00 BP 205 / 135; Pulse 96; Resp 18; Pulse Ox 96% on R/A; cm10 14:33 BP 215 / 132; Pulse 89; Resp 16; Pulse Ox 97% on R/A; cm10 15:00 BP 218 / 140; Pulse 89; Resp 16; Pulse Ox 97% on R/A; cm10 15:32 BP 223 / 148; Pulse 99; Resp 16; Pulse Ox 99% ; cm10 16:06 BP 182 / 124; Pulse 103; Resp 16; Pulse Ox 96% on R/A; Pain 0/10; cm10 12:49 Body Mass Index 33.28 (90.72 kg, 165.1 cm) aa5 12:49 Pain Scale: Adult aa5 16:06 Pain Scale: Adult cm10 MDM: 12:44 Medical Screening Exam initiated dr5 15:59 Differential diagnosis: Nonspecific abd pain, gastritis, cholecystitis, pancreatitis, dr5 appendicitis, diverticulitis, viral gastroenteritis, gastroenteritis. Data reviewed: vital signs, nurses notes, lab test result(s), amylase and lipase, cardiac enzymes, troponin i, CBC, white blood cell count, hemoglobin, hematocrit, platelets, electrolytes, sodium, potassium, chloride, serum bicarbonate, BUN, creatinine, serum glucose, EKG, radiologic studies, CT scan, plain films. Consideration of Admission/Observation Escalation of care including admission/observation considered. Escalation considered patient did not pass p.o. challenge or found to have pancreatitis. I considered the following discharge prescriptions or medication management in the emergency department I discussed and recommended Over The Counter medications, Medications were administered in the Emergency Department. See MAR. Historians other than the Patient: Spouse/Significant Other: . Care significantly affected by the following chronic conditions: Hypertension, Hyperlipidemia, GERD. Care significantly affected by the following Social Determinants of Health: Poor access to healthcare and/or lack of insurance, Poor access to transportation, Problems related to employment. 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 Medication response: Nitro x 1 partially relieved pain, Morphine, Zofran, droperidol, hydralazine x 2, nitroglycerin sublingual x 1. Response to treatment: Mildly decreased blood pressure. Patient passed p.o. challenge . Special discussion: I have referred the patient to see his PCP for further evaluation of high blood pressure. I discussed with the patient/guardian in detail that at this point there is no indication for admission to the hospital. It is understood, however, that if the symptoms persist or worsen the patient needs to return immediately for re-evaluation. Based on the history and exam findings, there is no indication for further emergent testing or inpatient evaluation. I discussed with the patient/guardian the need to see the primary care provider for further evaluation of the symptoms. ED course: I had a long conversation with patient regarding his blood pressure and to follow-up primary care doctor this week for further management and change in blood pressure medications. Patient reports he is feeling better and abdominal pain has subsided. Nausea has resolved. All labs and CT scan were printed and given to patient to take with him to primary care doctor. All questions answered. Patient passed p.o. challenge. Strict ER precautions given.. 07/21 12:49 Order name: Basic Metabolic Panel; Complete Time: 13:49 [facility] 07/21 12:49 Order name: CBC with Diff; Complete Time: 13:28 [facility] 07/21 12:49 Order name: Troponin HS; Complete Time: 13:49 [facility] 07/21 12:49 Order name: Lipase; Complete Time: 13:49 [facility] 07/21 12:49 Order name: XRAY Chest (1 view); Complete Time: 13:44 [facility] 07/21 13:04 Order name: CT Abd/Pelvis - IV Contrast Only; Complete Time: 14:42 [facility] 07/21 12:49 Order name: EKG; Complete Time: 12:50 [facility] 07/21 12:49 Order name: Cardiac monitoring; Complete Time: 13:11 [facility] 07/21 12:49 Order name: EKG - Nurse/Tech; Complete Time: 13:12 [facility] 07/21 12:49 Order name: IV Saline Lock; Complete Time: 13:12 [facility] 07/21 12:49 Order name: Labs collected and sent; Complete Time: 13:12 [facility] 07/21 12:49 Order name: O2 Per Protocol; Complete Time: 13:12 [facility] 07/21 12:49 Order name: O2 Sat Monitoring; Complete Time: 13:12 dr5 EC:00 Rate is 86 beats/min. Rhythm is regular. QRS [place] is Normal. [place] interval is normal at dr5 154 msec. QRS interval is normal at 86 msec. QT interval is normal at 392 msec. Clinical impression: Normal ECG. Administered Medications: 13:11 Drug: NS 0.9% IV 1000 ml IV at 1000 ml once; to be given as a bolus over 60 minutes cm10 Route: IV; Rate: 1000 ml; Site: left antecubital; 14:00 Follow up: Response: No adverse reaction; IV Status: Completed infusion; IV Intake: cm10 1000ml 13:11 Drug: Ondansetron IVP 4 mg IVP once; over 2 minutes Route: IVP; Site: left antecubital; cm10 14:00 Follow up: Response: No adverse reaction cm10 13:22 Drug: morphine IVP or IV 4 mg IVP once over 4 mins Route: IVP; Infused Over: 4 mins; cm10 Site: left antecubital; 14:00 Follow up: Response: No adverse reaction cm10 13:22 Drug: hydrALAZINE IVP 5 mg IVP once Route: IVP; Site: left antecubital; cm10 14:00 Follow up: Response: No adverse reaction cm10 14:07 Drug: hydrALAZINE IVP 5 mg IVP once Route: IVP; Site: left antecubital; cm10 14:37 Follow up: Response: No adverse reaction cm10 14:07 Drug: Droperidol IVP 1.25 mg IVP once Route: IVP; Site: left antecubital; cm10 14:37 Follow up: Response: No adverse reaction cm10 15:32 Drug: Nitroglycerin Sublingual 0.4 mg Sublingual once Route: Sublingual; cm10 16:07 Follow up: Response: No adverse reaction cm10 15:33 Drug: Potassium PO Effervescent Tablet 50 mEq PO once; dissolve in 4 ounces of water or cm10 juice Route: PO; 16:07 Follow up: Response: No adverse reaction cm10 Disposition: 16:47 Co-signature as Attending Physician, Shakir Felix MD I reviewed the patient's care rn provided by the Advanced Practice Provider and agree with the diagnosis and treatment plan. Disposition Summary: 07/21/25 15:55 Discharge Ordered Notes: Location: Home dr5 Condition: Stable dr5 Diagnosis - Other specified noninfective gastroenteritis and colitis dr5 Followup: dr5 - With: Emergency Department - When: As needed - Reason: Worsening of condition Followup: dr5 - With: Private Physician - When: 1 - 2 days - Reason: Recheck today's complaints, Continuance of care, Re-evaluation by your physician Discharge Instructions: - Discharge Summary Sheet dr5 - Colitis dr5 Forms: - Medication Reconciliation Form dr5 - Patient Portal Instructions dr5 - Leadership Thank You Letter dr5 Prescriptions: - Zofran 4 mg Oral Tablet - take 1 tablet ORAL route every 12 hours As needed; 20 tablet; Refills: 0, dr5 Product Selection Permitted - Tramadol 50 mg Oral Tablet - take 1 tablet ORAL route every 8 hours as needed; 12 tablet; Refills: 0, dr5 Product Selection Permitted Critical care time excluding procedures: 15:59 Critical care time: Bedside Care: 35 minutes, Consultation: 5 minutes, Family dr5 Intervention: 5 minutes. Total time: 45 minutes Signatures: Dispatcher [employer] EDShakir Patel MD MD rn Calderon, Audri, RN RN aa5 Pauly Lobo RN RN cm10 [employer], COUNTY HEALTH OFFICER-C COUNTY HEALTH OFFICER-Cdr5
--- NOTE | 2025-07-21 15:56 | ER ---
Nurse's Notes [facility] Name: Kirit Brownlee Age: 54 yrs Sex: Male : 1970 Arrival Date: 07/21/2025 Time: 12:42 Bed 16 Private MD: Diagnosis: Other specified noninfective gastroenteritis and colitis Presentation: 07/21 12:49 Chief complaint: Patient states: nausea/vomiting/diarrhea and generalized weakness that aa5 began today. Pt also c/o high blood pressure readings this morning. 12:49 Coronavirus screen: nausea, vomiting. Ebola Screen: Patient denies travel to an aa5 Ebola-affected area in the 21 days before illness onset. Initial Sepsis Screen: Does the patient meet any 2 criteria? No. Patient's initial sepsis screen is negative. Does the patient have a suspected source of infection? No. Patient's initial sepsis screen is negative. Risk Assessment: Do you want to hurt yourself or someone else? Patient reports no desire to harm self or others. Onset of symptoms was July 21, 2025. 12:49 Acuity: JESSICA 2 aa5 12:49 Method Of Arrival: Ambulatory aa5 Historical: - Allergies: 12:55 No Known Allergies; aa5 - PMHx: 12:55 GERD; High Cholesterol; Hypertension; aa5 - Immunization history:: Adult Immunizations unknown. - Infectious Disease History:: Denies. - Social history:: Smoking status: Patient reports the use of cigarette tobacco products, denies chronic smoking, but will smoke occasionally. Screenin:08 [facility] ED Fall Risk Assessment (Adult) History of falling in the last 3 months, cm10 including since admission No falls in past 3 months (0 pts) Confusion or Disorientation No (0 pts) Intoxicated or Sedated No (0 pts) Impaired Gait No (0 pts) Mobility Assist Device Used No (0 pt) Altered Elimination No (0 pt) Score/Fall Risk Level 0 - 2 = Low Risk Oriented to surroundings, Maintained a safe environment, Hourly rounding (assess needs \T\ fall precautionary measures) done. Abuse screen: Denies threats or abuse. Denies injuries from another. Nutritional screening: No deficits noted. Tuberculosis screening: No symptoms or risk factors identified. Assessment: 13:13 General: Appears uncomfortable, ill, Behavior is cooperative. Pain: Complains of pain cm10 in abdomen. Neuro: No deficits noted. Level of Consciousness is awake, alert, obeys commands, Oriented to person, place, time, situation, Appropriate for age. Cardiovascular: Rhythm is sinus rhythm. Respiratory: No deficits noted. Airway is patent Respiratory effort is even, unlabored, Respiratory pattern is regular, symmetrical. GI: Abdomen is non-distended, Reports diarrhea, nausea, vomiting. 15:33 Reassessment: Pt tolerating PO fluids at this time. cm10 16:06 Reassessment: Patient appears in no apparent distress at this time. Patient and/or cm10 family updated on plan of care and expected duration. Pain level reassessed. Patient is alert, oriented x 3, equal unlabored respirations, skin warm/dry/pink. Patient is alert/active/playful, equal unlabored respirations, skin warm/dry/pink. Patient denies pain at this time. Patient states feeling better. Patient states symptoms have improved. Vital Signs: 12:49 BP 211 / 146; Pulse 88; Resp 20 S; Temp 97.8(O); Pulse Ox 90% on R/A; Weight 90.72 kg aa5 (R); Height 5 ft. 5 in. (R); Pain 0/10; 12:58 BP 201 / 143; Pulse 88; Resp 16; Pulse Ox 93% on R/A; cm10 13:35 BP 194 / 119; Pulse 86; Resp 17; Pulse Ox 94% on R/A; cm10 13:43 BP 197 / 127; Pulse 89; Resp 16; Pulse Ox 97% on R/A; cm10 13:57 BP 197 / 124; dr5 14:00 BP 205 / 135; Pulse 96; Resp 18; Pulse Ox 96% on R/A; cm10 14:33 BP 215 / 132; Pulse 89; Resp 16; Pulse Ox 97% on R/A; cm10 15:00 BP 218 / 140; Pulse 89; Resp 16; Pulse Ox 97% on R/A; cm10 15:32 BP 223 / 148; Pulse 99; Resp 16; Pulse Ox 99% ; cm10 16:06 BP 182 / 124; Pulse 103; Resp 16; Pulse Ox 96% on R/A; Pain 0/10; cm10 12:49 Body Mass Index 33.28 (90.72 kg, 165.1 cm) aa5 12:49 Pain Scale: Adult aa5 16:06 Pain Scale: Adult cm10 ED Course: 12:43 Patient arrived in ED. ts1 12:43 Hang Rod FNP-C [facility]. dr5 12:43 Shakir Felix MD is Attending Physician. dr5 12:49 Pauly Lobo, RAIN is Primary Nurse. cm10 12:49 Arm band placed on Patient placed in an exam room, on a stretcher. aa5 12:55 Triage completed. aa5 13:11 Lipase Sent. cm10 13:12 Patient has correct armband on for positive identification. Bed in low position. Call cm10 light in reach. Side rails up X2. Client placed on continuous cardiac and pulse oximetry monitoring. NIBP monitoring applied. playground monitor on. 13:12 Basic Metabolic Panel Sent. cm10 13:12 CBC with Diff Sent. cm10 13:12 Troponin HS Sent. cm10 13:12 Initial lab(s) drawn, by me, sent to lab. EKG done, by ED staff, reviewed by Hang LINDO. Inserted saline lock: 20 gauge in left antecubital area, using aseptic technique. Blood collected. Flushed with 10 mL NS. 13:38 XRAY Chest (1 view) In Process Unspecified. EDMS 14:22 CT Abd/Pelvis - IV Contrast Only In Process Unspecified. EDMS 16:17 No provider procedures requiring assistance completed. IV discontinued, intact, cm10 bleeding controlled, No redness/swelling at site. Pressure dressing applied. 16:18 Provided Education on: Follow-up. cm10 Administered Medications: 13:11 Drug: NS 0.9% IV 1000 ml IV at 1000 ml once; to be given as a bolus over 60 minutes cm10 Route: IV; Rate: 1000 ml; Site: left antecubital; 14:00 Follow up: Response: No adverse reaction; IV Status: Completed infusion; IV Intake: cm10 1000ml 13:11 Drug: Ondansetron IVP 4 mg IVP once; over 2 minutes Route: IVP; Site: left antecubital; cm10 14:00 Follow up: Response: No adverse reaction cm10 13:22 Drug: morphine IVP or IV 4 mg IVP once over 4 mins Route: IVP; Infused Over: 4 mins; cm10 Site: left antecubital; 14:00 Follow up: Response: No adverse reaction cm10 13:22 Drug: hydrALAZINE IVP 5 mg IVP once Route: IVP; Site: left antecubital; cm10 14:00 Follow up: Response: No adverse reaction cm10 14:07 Drug: hydrALAZINE IVP 5 mg IVP once Route: IVP; Site: left antecubital; cm10 14:37 Follow up: Response: No adverse reaction cm10 14:07 Drug: Droperidol IVP 1.25 mg IVP once Route: IVP; Site: left antecubital; cm10 14:37 Follow up: Response: No adverse reaction cm10 15:32 Drug: Nitroglycerin Sublingual 0.4 mg Sublingual once Route: Sublingual; cm10 16:07 Follow up: Response: No adverse reaction cm10 15:33 Drug: Potassium PO Effervescent Tablet 50 mEq PO once; dissolve in 4 ounces of water or cm10 juice Route: PO; 16:07 Follow up: Response: No adverse reaction cm10 Medication: 16:18 VIS not applicable for this client. cm10 Intake: 14:00 IV: 1000ml; Total: 1000ml. cm10 Outcome: 15:55 Discharge ordered by MD. dr5 16:17 Discharged to home via wheelchair, with family, cm10 16:17 Condition: good 16:17 Discharge instructions given to patient, Instructed on discharge instructions, follow up and referral plans. medication usage, Demonstrated understanding of instructions, follow-up care, medications, Prescriptions given X 2, 16:18 Patient left the ED. cm10 Signatures: Dispatcher [employer] EDNC Benita Medrano RN RN aa5 Elizabeth Azul PAS PAS ts1 Pauly Lobo RN RN cm10 Hang Rod, [employer]AY G[employer] REPAIRER HELPER-C SPRAY G[employer] REPAIRER HELPER-Cdr5
[2025-07-21 17:24] VITALS: TEMP 97.8
[2025-07-21 17:40] VITALS: BP 182/124; O2SAT 96
== END 2025-07-21 16:18 | disposition home or self-care (01) ==
LOC: ER 12:42
DX: K52.89 Other specified noninfective gastroenteritis and colitis (principal); F17.210 Nicotine dependence, cigarettes, uncomplicated
CPT/HCPCS: 96361; 85025; 80048; 36415; 84484; 83690; 74177; 71045; 96375; 96374; 99285; Q9967; J0360 ×2; J2405; J1790; J7030; 93005